=== PATIENT | male | born 1965 | race African-American/Black ===

== ENCOUNTER 2022-02-06 04:40 | Inpatient (IN) | payer SELFPAY ==
--- NOTE | 2022-02-06 11:02 | XRay Report ---
CHEST 2 VIEWS INDICATION / CLINICAL INFORMATION: stroke symptoms. COMPARISON: None available. FINDINGS: SUPPORT DEVICES: None. HEART / MEDIASTINUM: No significant abnormality. LUNGS / PLEURA: No significant pulmonary or pleural abnormality. No pneumothorax. ADDITIONAL FINDINGS: No significant additional findings. IMPRESSION: 1. No acute findings. Signer Name: Tim Sweeney MD Signed: 02/06/2022 10:57 AM Workstation Name: [id number]
[2022-02-06 11:28] LABS: Basophils # (Auto) 0.1 K/mm3 (0.0-0.1); Basophils % (Auto) 0.8 % (0.0-1.8); Eosinophils # (Auto) 0.1 K/mm3 (0.0-0.4); Eosinophils % (Auto) 0.8 % (0.0-4.3); Hematocrit 51.9 % (35.5-45.6); Hemoglobin 17.3 gm/dl (11.8-15.2); Lymphocytes # (Auto) 2.5 K/mm3 (1.2-5.4); Lymphocytes % (Auto) 27.3 % (13.4-35.0); Mean Corpuscular HGB Conc 33 % (32-34); Mean Corpuscular Volume 97 fl (84-94); Monocytes # (Auto) 0.6 K/mm3 (0.0-0.8); Monocytes % (Auto) 6.2 % (0.0-7.3); Platelet Count 204 K/mm3 (140-440); Red Blood Count 5.37 M/mm3 (3.65-5.03); Red Cell Distribution Width 12.4 % (13.2-15.2)
[2022-02-06 11:38] LABS: INR 0.78 (0.87-1.13); Partial Thromboplastin Time 24.4 Sec. (24.2-36.6)
[2022-02-06 11:51] LABS: Creatine Kinase MB 1.5 ng/mL (0.0-4.0)
[2022-02-06 11:52] LABS: Alanine Aminotransferase 26 units/L (7-56); Albumin 4.7 g/dL (3.9-5); BUN/Creatinine Ratio 21; Blood Urea Nitrogen 25 mg/dL (9-20); Calcium 10.1 mg/dL (8.4-10.2); Hemolysis Index 13
[2022-02-06] MEDS ORDERED: INSULIN REGULAR, HUMAN 100 UNITS/1 ML IV ONE (12:11)
[2022-02-06] MEDS ORDERED: LACTATED RINGERS 1,000 ML IV ONE (12:11)
--- NOTE | 2022-02-06 12:14 | Cat Scan Report ---
CT head/brain wo con INDICATION / CLINICAL INFORMATION: 56 years Male; Stroke symptoms. TECHNIQUE: Routine CT head without contrast. All CT scans at this location are performed using CT dos e reduction for ALARA by means of automated exposure control. COMPARISON: None. FINDINGS: BRAIN / INTRACRANIAL CONTENTS: No acute hemorrhage, mass effect, midline shift, hydrocephalus, or acu te, large territorial infarct. No signs of significant atrophy or chronic infarct. No significant whi te matter abnormality seen. CRANIOCERVICAL JUNCTION: No significant abnormality. ORBITS: No significant abnormality of visualized orbits. SINUSES / MASTOIDS: There is opacification of the left maxillary antrum. Partial opacification of the ethmoids and left frontal sinus noted. Mild to moderate mucosal thickening seen in the mastoids. ADDITIONAL FINDINGS: None. IMPRESSION: 1. No focal mass, hemorrhage, hydrocephalus, or acute, large territorial infarct. 2. Sinus disease, as described above. Signer Name: Reynaldo Phoenix MD, III Signed: 02/06/2022 12:10 PM Workstation Name: [id number]
--- NOTE | 2022-02-06 12:14 | Emergency Department Report ---
ED General Adult HPI - General Chief complaint: Anxiety Stated complaint: right sided weakness Time Seen by Provider: 02/06/22 09:37 Source: patient, family, EMS ( EMS documentation not available at time of chart dictation ), RN notes reviewed Mode of arrival: Ambulatory Limitations: Language Barrier - History of Present Illness Initial comments: The patient was evaluated in the emergency department for symptoms described in the history of present illness. He/she was evaluated in the context of the global COVID-19 pandemic, which necessitated consideration that the patient might be at risk for infection with the virus that causes COVID-19. Instit utional protocols and algorithms that pertain to the evaluation of patients at risk for COVID-19 are in a state of rapid change based on information released by regulatory bodies including the CDC and federal and state organizations. These policies and algorithms were followed during the patient's care in the emergency department. Please note that these policies, procedures and recommendations changed on a rapid basis. [place] paster supervisor: [id number] Family at the bedside, Mr. Danish Camarena; [phone] Using the aforementioned paster supervisor, patient gives consent to have the details of his care discussed with family at the bedside. The patient is a 56-year-old gentleman who is right-hand dominant, who presents to the department today with a primary complaint of right upper extremity weakne ss and clumsiness for about a week. Positive binocular blurry vision. No headache. No chest pain. No abdominal pain. No nausea vomiting or diarrhea. No urinary symptoms. No bladder or bowel retention incontinence or saddle anesthesia. Also endorses right leg weakness and numbness. On review of systems, reports no COVID symptoms. Reports that he has not used drugs for about 10 years. He does not know if he has chronic medical conditions. His primary care doctor recently treated him for a right upper extremity rash with steroids, gabapentin, and valacyclovir. He reports that the right upper extremity rash is improving. Family endorses unintentional weight loss which is painless. Patient also denies hematemesis and bright red blood per rectum -: days(s) Location: left, right, upper extremity, lower extremity Consistency: constant Improves with: none Worsens with: none - Related Data Allergies Allergy/AdvReac Type Severity Reaction Status Date / Time No Known Allergies Allergy Unverified 02/06/22 04:53 ED Review of Systems ROS: Stated complaint: ANXIETY ATTACK Other details as noted in HPI Constitutional: malaise, weakness. denies: fever Eyes: vision change. denies: eye discharge ENT: denies: epistaxis Cardiovascular: denies: chest pain Gastrointestinal: denies: abdominal pain Genitourinary: denies: dysuria Musculoskeletal: denies: back pain Skin: rash, lesions Neurological: weakness, paresthesias ED Past Medical Hx - Past Medical History Previous Medical History?: No - Surgical History Past Surgical History?: No - Social History Smoking Status: Never Smoker Substance Use Type: None ED Physical Exam - General Limitations: Language Barrier General appearance: alert, in no apparent distress - Head Head exam: Present: atraumatic, normocephalic - Eye Eye exam: Present: normal appearance, PERRL, EOMI. Absent: nystagmus - ENT ENT exam: Present: normal orophraynx, mucous membranes dry, normal external ear exam - Neck Neck exam: Present: normal inspection, full ROM. Absent: tenderness, meningismus - Respiratory Respiratory exam: Present: normal lung sounds bilaterally. Absent: respiratory distress, wheezes, rales, rhonchi, stridor, decreased breath sounds - Cardiovascular Cardiovascular Exam: Present: regular rate, normal rhythm, normal heart sounds. Absent: bradycardia, tachycardia, irregular rhythm, systolic murmur, diastolic murmur, rubs, gallop - GI/Abdominal GI/Abdominal exam: Present: soft. Absent: distended, tenderness, guarding, rebound, rigid, pulsatile mass - Rectal Rectal exam: Present: deferred - Extremities Exam Extremities exam: Present: full ROM, other (2+ pulses noted in the bilateral upper and lower extremities. There is no palpable cord. negative Homans sign. Muscular compartments are soft. The pelvis is stable.). Absent: normal inspection (Healing vesicular lesions noted on the right upper), pedal edema, calf tenderness - Back Exam Back exam: Present: normal inspection. Absent: tenderness, CVA tenderness (R), CVA tenderness (L), paraspinal tenderness, vertebral tenderness - Neurological Exam Neurological exam: Present: alert, oriented X3, motor sensory deficit (4 out of 5 strength right arm and right leg. Decreased sensation to light touch right arm and right leg. Mild right upper extremity pronator drift. Upper extremity [id number] abnormal), other (There is no facial droop. The tongue is midline. Sensation is intact to light touch bilateral V1, V2 distribution. Patient reports decreased sensation to light touch V2, V3 bilaterally. 5/5 strength left arm and left leg. Sensation is intact to light touch left arm and left leg) - Psychiatric Psychiatric exam: Present: flat affect - Skin Skin exam: Present: warm, dry, intact ED Course Vital Signs 02/06/22 02/06/22 02/06/22 04:53 11:16 11:25 Temperature 98.9 F Pulse Rate 82 60 Respiratory 18 15 Rate Blood Pressure 129/71 O2 Sat by Pulse 96 99 100 Oximetry - Reevaluation(s) Reevaluation #1: 02/06/22 13:23 Right upper extremity not consistent with acute zoster. Healing lesions are noted, patient and family endorse that lesions look much better than prior. - Pulse Oximetry Interpretation Digit-Finger Initial Pulse Oximetry Readin O2 Sat by Pulse Oximetry: 99 Actions Taken: none ED Medical Decision Making - Lab Data Result diagrams: 02/06/22 10:44 02/06/22 10:44 Vital Signs 02/06/22 02/06/22 02/06/22 04:53 11:16 11:25 Temperature 98.9 F Pulse Rate 82 60 Respiratory 18 15 Rate Blood Pressure 129/71 O2 Sat by Pulse 96 99 100 Oximetry Lab Results 02/06/22 02/06/22 02/06/22 Range/Units 10:44 10:44 10:44 WBC 9.1 (4.5-11.0) K/mm3 RBC 5.37 H (3.65-5.03) M/mm3 Hgb 17.3 H (11.8-15.2) gm/dl Hct 51.9 H (35.5-45.6) % MCV 97 H (84-94) fl MCH 32 (28-32) pg MCHC 33 (32-34) % RDW 12.4 L (13.2-15.2) % Plt Count 204 (140-440) K/mm3 Lymph % (Auto) 27.3 (13.4-35.0) % Rich % (Auto) 6.2 (0.0-7.3) % Eos % (Auto) 0.8 (0.0-4.3) % Baso % (Auto) 0.8 (0.0-1.8) % Lymph # (Auto) 2.5 (1.2-5.4) K/mm3 Rich # (Auto) 0.6 (0.0-0.8) K/mm3 Eos # (Auto) 0.1 (0.0-0.4) K/mm3 Baso # (Auto) 0.1 (0.0-0.1) K/mm3 Seg Neutrophils % 64.9 (40.0-70.0) % Seg Neutrophils # 5.9 (1.8-7.7) K/mm3 PT 11.7 L (12.2-14.9) Sec. INR 0.78 L (0.87-1.13) APTT 24.4 (24.2-36.6) Sec. Thrombin Time 16.0 (15.1-19.6) Sec. Sodium 133 L (137-145) mmol/L Potassium 4.9 (3.6-5.0) mmol/L Chloride 93.5 L (98-107) mmol/L Carbon Dioxide 29 (22-30) mmol/L Anion Gap 15 mmol/L BUN 25 H (9-20) mg/dL Creatinine 1.2 (0.8-1.3) mg/dL Estimated GFR > 60 ml/min BUN/Creatinine Ratio 21 % Glucose 609 H* (75-100) mg/dL Calcium 10.1 (8.4-10.2) mg/dL Total Bilirubin 0.60 (0.1-1.2) mg/dL AST 19 (5-40) units/L ALT 26 (7-56) units/L Alkaline Phosphatase 140 H (35-129) units/L Total Creatine Kinase 40 L (55-170) units/L CK-MB (CK-2) 1.5 (0.0-4.0) ng/mL CK-MB (CK-2) Rel Index 3.7 (0-4) Troponin T < 0.010 (0.00-0.029) ng/mL Total Protein 7.6 (6.3-8.2) g/dL Albumin 4.7 (3.9-5) g/dL Albumin/Globulin Ratio 1.6 % - EKG Data -: EKG Interpreted by [place] EKG shows normal: sinus rhythm Rate: normal - EKG Data When compared to previous EKG there are: previous EKG unavailable 02/06/22 13:20 The EKG is interpreted at 12: 15 Sinus rhythm, rate 61 bpm. Normal axis, normal P wave axis, poor R wave progression, and motion artifact. Intervals within normal limits. This is an abnormal EKG. This is not a STEMI. There is no prior EKG available for comparison - Radiology Data Radiology results: pending, report reviewed, image reviewed CHEST 2 VIEWS INDICATION / CLINICAL INFORMATION: stroke symptoms. COMPARISON: None available. FINDINGS: SUPPORT DEVICES: None. HEART / MEDIASTINUM: No significant abnormality. LUNGS / PLEURA: No significant pulmonary or pleural abnormality. No pneumothorax. ADDITIONAL FINDINGS: No significant additional findings. IMPRESSION: 1. No acute findings. Signer Name: Tim Sweeney MD Signed: 02/06/2022 9:57 AM Workstation Name: [id number] CT head/brain wo con INDICATION / CLINICAL INFORMATION: 56 years Male; Stroke symptoms. TECHNIQUE: Routine CT head without contrast. All CT scans at this location are performed using CT dose reduction for ALARA by means of automated exposure control. COMPARISON: None. FINDINGS: BRAIN / INTRACRANIAL CONTENTS: No acute hemorrhage, mass effect, midline shift, hydrocephalus, or acute, large territorial infarct. No signs of significant atrophy or chronic infarct. No significant white matter abnormality seen. CRANIOCERVICAL JUNCTION: No significant abnormality. ORBITS: No significant abnormality of visualized orbits. SINUSES / MASTOIDS: There is opacification of the left maxillary antrum. Partial opacification of the ethmoids and left frontal sinus noted. Mild to moderate mucosal thickening seen in the mastoids. ADDITIONAL FINDINGS: None. IMPRESSION: 1. No focal mass, hemorrhage, hydrocephalus, or acute, large marta torial infarct. 2. Sinus disease, as described above. Signer Name: Reynaldo Phoenix MD, III Signed: 02/06/2022 11:10 AM Workstation Name: [id number] - Medical Decision Making Differential diagnosis, including but not limited to: Subacute stroke, metabolic derangement, electrolyte derangement, thyroid derangement, peripheral neuropathy Assessment and plan: 56-year-old gentleman with a primary complaint of right upper extremity and right lower extremity weakness and numbness for about a week. Symptoms present for greater than 4.5 hours. He is therefore not a tPA candidate. Symptoms present for greater than 1 day. Therefore, emergent CT angiogram head and neck not indicated. Noncontrast CT scan of the brain, and x-ray of the chest are negative. EKG nonspecific without chest pain. Laboratory studies demonstrate hyperglycemia with hemoconcentration. Using paster supervisor, have recommended admission to the medical service for medical optimization, and to be evaluated for subacute stroke. Patient is agreeable to this plan of care, and has also provided consen t for the details of his care to be discussed with family members. IV fluids, insulin, and aspirin have been ordered. Case is endorsed to hospital physician, Dr. Callie Greene, who will assume care of the patient. Called up family member Mr. Camarena, and gave him an update. He articulated understanding. All questions answered. Critical Care Time: Yes Critical care time in (mins) excluding proc time.: 35 Critical care attestation.: If time is entered above; I have spent that time in minutes in the direct care of this critically ill patient, excluding procedure time. ED Disposition Clinical Impression: Hyperglycemia, Dehydration, Right sided weakness Disposition: ADMITTED INPATIENT Is pt being admited?: Yes Does the pt Need Aspirin: No Condition: Good
[2022-02-06] MEDS ORDERED: ASPIRIN 81 MG TAB CHEW PO ONE (12:16)
[2022-02-06] MEDS ORDERED: ONDANSETRON 4 MG/2 ML INJ IV PRN ×2 (12:17→16:42)
[2022-02-06] MEDS ORDERED: ACETAMINOPHEN 325 MG TAB PO PRN ×2 (12:17→16:42)
[2022-02-06 13:20] LABS: Chol/HDL Ratio 5.66 %
[2022-02-06] MEDS ORDERED: METOCLOPRAMIDE 10 MG/2 ML INJ IV PRN (16:42)
[2022-02-06] MEDS ORDERED: MORPHINE 2 MG/1 ML INJ IV PRN (16:42)
[2022-02-06] MEDS ORDERED: HYDROmorphone 0.5 MG/0.5 ML INJ IV PRN (16:42)
[2022-02-06] MEDS ORDERED: DEXTROSE 50% IN WATER (25GM) 50 ML SYRINGE IV PRN (16:51)
[2022-02-06] MEDS ORDERED: INSULIN REGULAR, HUMAN 100 UNITS in SODIUM CHLORIDE 0.9% 99 ML IV SCH (17:00)
[2022-02-06 17:44] LABS: BUN/Creatinine Ratio 22; Blood Urea Nitrogen 20 mg/dL (9-20); Calcium 8.5 mg/dL (8.4-10.2); Hemolysis Index 6
[2022-02-06 19:17] LABS: BUN/Creatinine Ratio 26; Blood Urea Nitrogen 23 mg/dL (9-20); Calcium 8.3 mg/dL (8.4-10.2); Hemolysis Index 71
[2022-02-06] MEDS: D5W/0.45% NACL/KCL 20 MEQ 20 MEQ/1,000 ML BAG IV SCH ×2 (19:29→22:09)
[2022-02-06 19:55] LABS: Amphetamine Screen,Urine PRESUMPTIVE NEGATIVE; Benzodiazepines Screen,Urine PRESUMPTIVE NEGATIVE; Cannabinoid Screen,Urine PRESUMPTIVE NEGATIVE; Cocaine Screen,Urine PRESUMPTIVE NEGATIVE; Methadone Screen,Urine PRESUMPTIVE NEGATIVE; Opiate Screen,Urine PRESUMPTIVE NEGATIVE
[2022-02-06 19:57] LABS: Mucus,Urine FEW /HPF; RBC,Urine < 1.0 /HPF (0.0-6.0); WBC,Urine < 1.0 /HPF (0.0-6.0)
[2022-02-06 20:14] LABS: Bilirubin,Urine Negative (Negative); Blood,Urine Negative (Negative); Color,Urine Straw (Yellow)
[2022-02-06 21:24] LABS: BUN/Creatinine Ratio 24; Blood Urea Nitrogen 22 mg/dL (9-20); Calcium 8.2 mg/dL (8.4-10.2); Hemolysis Index 22
[2022-02-06] MEDS ORDERED: SODIUM CHLORIDE 0.9% 1000 ML 1,000 ML ONE (21:32)
[2022-02-06] MEDS: HEPARIN 5,000 UNIT/1 ML VIAL SUB-Q SCH (21:33)
[2022-02-06] MEDS ORDERED: SODIUM CHLORIDE 0.9% 1000 ML 1,000 ML IV SCH (21:45)
[2022-02-07 00:15] LABS: Blood Urea Nitrogen 19 mg/dL (9-20); Calcium 7.7 mg/dL (8.4-10.2); Hemolysis Index 5
[2022-02-07 00:16] LABS: BUN/Creatinine Ratio 27
[2022-02-07] MEDS ORDERED: SODIUM CHLORIDE 0.9% 1000 ML 1,000 ML IV ONE ×2 (00:33→02:54)
[2022-02-07 01:54] LABS: Blood Urea Nitrogen 18 mg/dL (9-20); Calcium 7.4 mg/dL (8.4-10.2); Hemolysis Index 13
[2022-02-07 02:10] LABS: BUN/Creatinine Ratio 26
[2022-02-07 05:17] LABS: Alanine Aminotransferase 17 units/L (7-56); Albumin 2.4 g/dL (3.9-5); Blood Urea Nitrogen 16 mg/dL (9-20); Calcium 6.9 mg/dL (8.4-10.2); Hemolysis Index 17
[2022-02-07 05:23] LABS: BUN/Creatinine Ratio 27
[2022-02-07] MEDS: D5W/0.45% NACL/KCL 20 MEQ 20 MEQ/1,000 ML BAG IV SCH (05:33)
--- NOTE | 2022-02-07 06:45 | History and Physical Report ---
History of Present Illness Date of examination: 02/06/22 Date of admission: 02/06/22 16:42 Chief complaint: Altered sensorium and right-sided weakness 1 day History of present illness: [place] talent program manager: [id number] Family at the bedside, Mr. Danish Camarena; [phone] Using the aforementioned talent program manager, patient gives consent to have the details of his care discussed with family at the bedside. The patient is a 56-year-old gentleman who is right-hand dominant, who presents to the department today with a primary complaint of right upper extremity weakness and clumsiness for about a week. Positive binocular blurry vision. No headache. No chest pain. No abdominal pain. No nausea vomiting or diarrhea. No urinary symptoms. No bladder or bowel retention incontinence or saddle anesthesia. Also endorses right leg weakness and numbness. On review of systems, reports no COVID symptoms. Reports that he has not used drugs for about 10 years. He does not know if he has chronic medical conditions. His primary care doctor recently treated him for a right upper extremity rash with steroids, gabapentin, and valacyclovir. He reports that the right upper extremity rash is improving. Family endorses unintentional weight loss Patient also denies hematemesis and bright red blood per rectum -: days(s) ED course: Blood glucose levels were high in the mid 650s--- patient being admitted to ICU for IV insulin and DKA protocol - Past Medical History --Previous Medical History?: No - Surgical History --Past Surgical History?: No - Social History --Smoking Status: Never Smoker --Substance Use Type: None -Family history --Htn Review of Systems ROS: Stated complaint: ANXIETY ATTACK Other details as noted in HPI Constitutional: malaise, weakness. denies: fever Eyes: vision change. denies: eye discharge ENT: denies: epistaxis Cardiovascular: denies: chest pain Gastrointestinal: denies: abdominal pain Genitourinary: denies: dysuria Musculoskeletal: denies: back pain Skin: rash, lesions Neurological: weakness, paresthesias Medications and Allergies Allergies Allergy/AdvReac Type Severity Reaction Status Date / Time No Known Allergies Allergy Unverified 02/06/22 04:53 Home Medications Medication Instructions Recorded Confirmed Last Taken Type No Known Home Medications [No 02/06/22 02/06/22 Unknown History Reported Home Medications] Active Meds: Active Medications Acetaminophen (Acetaminophen 325 Mg Tab) 650 mg PO Q4H PRN PRN Reason: Pain MILD(1-3)/Fever >100.5/[place] Dextrose (Dextrose 50% In Water (25gm) 50 Ml Syringe) 0 ml IV Q30MIN PRN; Protocol PRN Reason: Hypoglycemia Heparin Sodium (Porcine) (Heparin 5,000 Unit/1 Ml Vial) 5,000 unit SUB-Q Q12HR [facility] Last Admin: 02/06/22 21:33 Dose: 5,000 unit Hydromorphone HCl (Hydromorphone 0.5 Mg/0.5 Ml Inj) 0.5 mg IV Q3H PRN PRN Reason: Pain , Severe (7-10) Insulin Human Regular 100 (units/ Sodium Chloride) 100 mls @ 1 mls/hr IV TITR [facility]; Protocol Last Titration: 02/07/22 06:40 Dose: 2.5 units/hr, 2.5 mls/hr Potassium Chloride/Dextrose/Sod Cl (D5w/0.45% Nacl/Kcl 20 Meq) 20 meq in 1,000 mls @ 125 mls/hr IV DIRECT MEGHNA Last Admin: 02/07/22 05:33 Dose: 125 mls/hr Sodium Chloride (Nacl 0.9% 1000 Ml) 1,000 mls @ 125 mls/hr IV DIRECT MEGHNA Last Admin: 02/06/22 21:50 Dose: 125 mls/hr Metoclopramide HCl (Metoclopramide 10 Mg/2 Ml Inj) 10 mg IV Q6H PRN PRN Reason: Nausea And Vomiting Morphine Sulfate (Morphine 2 Mg/1 Ml Inj) 2 mg IV Q4H PRN PRN Reason: Pain, Moderate (4-6) Ondansetron HCl (Ondansetron 4 Mg/2 Ml Inj) 4 mg IV Q8H PRN PRN Reason: Nausea And Vomiting Sodium Chloride (Sodium Chloride 0.9% 10 Ml Flush Syringe) 10 ml IV BID [facility] Last Admin: 02/06/22 21:35 Dose: 10 ml Sodium Chloride (Sodium Chloride 0.9% 10 Ml Flush Syringe) 10 ml IV PRN PRN PRN Reason: LINE FLUSH Exam - Constitutional Vitals: Temp Pulse Resp BP Pulse Ox 97.6 F 57 L 18 81/48 97 02/06/22 23:17 02/07/22 05:00 08/13/22 05:07 02/07/22 05:00 02/07/22 05:07 General appearance: Present: no acute distress, well-nourished - EENT Eyes: Present: PERRL ENT: hearing intact, clear oral mucosa - Neck Neck: Present: supple, normal ROM - Respiratory Respiratory effort: normal Respiratory: bilateral: CTA - Cardiovascular Heart rate: 78 Rhythm: regular Heart Sounds: Present: S1 & S2. Absent: rub, click - Extremities Extremities: pulses symmetrical, No edema Peripheral Pulses: within normal limits - Abdominal General gastrointestinal: Present: soft, non-tender, non-distended, normal bowel sounds Male genitourinary: Present: normal - Integumentary Integumentary: Present: clear, warm, dry - Musculoskeletal Musculoskeletal: gait normal, strength equal bilaterally - Psychiatric Psychiatric: appropriate mood/affect, intact judgment & insight, other (Slightly lethargic) - Neurologic Neurologic: CNII-XII intact, moves all extremities, other (Slightly lethargic) - Allied Health Allied health notes reviewed: nursing, case management HEART Score - HEART Score Troponin: Troponin T < 0.010 ng/mL (0.00-0.029) 02/06/22 10:44 Results - Labs CBC & Chem 7: 02/06/22 10:44 02/07/22 04:18 Labs: Laboratory Last Values WBC 9.1 K/mm3 (4.5-11.0) 02/06/22 10:44 RBC 5.37 M/mm3 (3.65-5.03) H 02/06/22 10:44 Hgb 17.3 gm/dl (11.8-15.2) H 02/06/22 10:44 Hct 51.9 % (35.5-45.6) H 02/06/22 10:44 MCV 97 fl (84-94) H 02/06/22 10:44 MCH 32 pg (28-32) 02/06/22 10:44 MCHC 33 % (32-34) 02/06/22 10:44 RDW 12.4 % (13.2-15.2) L 02/06/22 10:44 Plt Count 204 K/mm3 (140-440) 02/06/22 10:44 Lymph % (Auto) 27.3 % (13.4-35.0) 02/06/22 10:44 Sabine % (Auto) 6.2 % (0.0-7.3) 02/06/22 10:44 Eos % (Auto) 0.8 % (0.0-4.3) 02/06/22 10:44 Baso % (Auto) 0.8 % (0.0-1.8) 02/06/22 10:44 Lymph # (Auto) 2.5 K/mm3 (1.2-5.4) 02/06/22 10:44 Sabine # (Auto) 0.6 K/mm3 (0.0-0.8) 02/06/22 10:44 Eos # (Auto) 0.1 K/mm3 (0.0-0.4) 02/06/22 10:44 Baso # (Auto) 0.1 K/mm3 (0.0-0.1) 02/06/22 10:44 Seg Neutrophils % 64.9 % (40.0-70.0) 02/06/22 10:44 Seg Neutrophils # 5.9 K/mm3 (1.8-7.7) 02/06/22 10:44 PT 11.7 Sec. (12.2-14.9) L 02/06/22 10:44 INR 0.78 (0.87-1.13) L 02/06/22 10:44 APTT 24.4 Sec. (24.2-36.6) 02/06/22 10:44 Thrombin Time 16.0 Sec. (15.1-19.6) 02/06/22 10:44 VBG pH 7.392 (7.320-7.420) 02/06/22 12:23 Sodium 142 mmol/L (137-145) 02/07/22 04:18 Potassium 3.9 mmol/L (3.6-5.0) 02/07/22 04:18 Chloride 111.9 mmol/L (98-107) H 02/07/22 04:18 Carbon Dioxide 19 mmol/L (22-30) L 02/07/22 04:18 Anion Gap 15 mmol/L 02/07/22 04:18 BUN 16 mg/dL (9-20) 02/07/22 04:18 Creatinine 0.6 mg/dL (0.8-1.3) L 02/07/22 04:18 Estimated GFR > 60 ml/min 02/07/22 04:18 BUN/Creatinine Ratio 27 % 02/07/22 04:18 Glucose 139 mg/dL (75-100) H 02/07/22 04:18 POC Glucose 172 mg/dL (70-105) H 02/07/22 06:39 Hemoglobin A1c 19.6 % (4-6) H 02/06/22 12:23 Calcium 6.9 mg/dL (8.4-10.2) L 02/07/22 04:18 Phosphorus 3.90 mg/dL (2.5-4.5) 02/06/22 17:03 Magnesium 1.70 mg/dL (1.7-2.3) 02/06/22 17:03 Total Bilirubin 0.40 mg/dL (0.1-1.2) 02/07/22 04:18 AST 25 units/L (5-40) 02/07/22 04:18 ALT 17 units/L (7-56) 02/07/22 04:18 Alkaline Phosphatase 58 units/L (35-129) 02/07/22 04:18 Total Creatine Kinase 36 units/L (55-170) L 02/06/22 12:23 CK-MB (CK-2) 1.5 ng/mL (0.0-4.0) 02/06/22 10:44 CK-MB (CK-2) Rel Index 3.7 (0-4) 02/06/22 10:44 Troponin T < 0.010 ng/mL (0.00-0.029) 02/06/22 10:44 Total Protein 4.3 g/dL (6.3-8.2) L D 02/07/22 04:18 Albumin 2.4 g/dL (3.9-5) L 02/07/22 04:18 Albumin/Globulin Ratio 1.3 % 02/07/22 04:18 Triglycerides 363 mg/dL (2-149) H 02/06/22 12:23 Cholesterol 283 mg/dL (50-199) H 02/06/22 12:23 LDL Cholesterol Direct 187 mg/dL (50-130) H 02/06/22 12:23 HDL Cholesterol 50 mg/dL (40-59) 02/06/22 12:23 Cholesterol/HDL Ratio 5.66 % 02/06/22 12:23 TSH 3.140 mlU/mL (0.270-4.200) 02/06/22 12: Free T4 1.44 ng/dL (0.76-1.46) 02/06/22 12:23 Urine Color Straw (Yellow) 02/06/22 Unknown Urine Turbidity Clear (Clear) 02/06/22 Unknown Urine pH 6.0 (5.0-7.0) 02/06/22 Unknown Ur Specific [place] 1.030 (1.003-1.030) 02/06/22 Unknown Urine Protein 30 mg/dl mg/dL (Negative) 02/06/22 Unknown Urine Glucose (UA) 2+ mg/dL (Negative) 02/06/22 Unknown Urine Ketones Negative mg/dL (Negative) 02/06/22 Unknown Urine Blood Negative (Negative) 02/06/22 Unknown Urine Nitrite Negative (Negative) 02/06/22 Unknown Ur Reducing Substances Not Reportable 02/06/22 Unknown Urine Bilirubin Negative (Negative) 02/06/22 Unknown Urine Ictotest Not Reportable 02/06/22 Unknown Urine Urobilinogen 0.0 mg/dL (<2.0) 02/06/22 Unknown Ur Leukocyte Esterase Negative (Negative) 02/06/22 Unknown Urine WBC (Auto) < 1.0 /HPF (0.0-6.0) 02/06/22 Unknown Urine RBC (Auto) < 1.0 /HPF (0.0-6.0) 02/06/22 Unknown U Epithel Cells (Auto) 1.0 /HPF (0-13.0) 02/06/22 Unknown Urine Mucus Few /HPF 02/06/22 Unknown Urine Opiates Screen Presumptive negative 02/06/22 Unknown Urine Methadone Screen Presumptive negative 02/06/22 Unknown Ur Barbiturates Screen Presumptive negative 02/06/22 Unknown Ur Phencyclidine Scrn Presumptive negative 02/06/22 Unknown Ur Amphetamines Screen Presumptive negative 02/06/22 Unknown U Benzodiazepines Scrn Presumptive negative 02/06/22 Unknown Urine Cocaine Screen Presumptive negative 02/06/22 Unknown U Marijuana (THC) Screen Presumptive negative 02/06/22 Unknown Drugs of Abuse Note Disclamer 02/06/22 Unknown Short CBC 02/06/22 Range/Units 10:44 WBC 9.1 (4.5-11.0) K/mm3 Hgb 17.3 H (11.8-15.2) gm/dl Hct 51.9 H (35.5-45.6) % Plt Count 204 (140-440) K/mm3 BMP 02/06/22 02/06/22 02/06/22 10:44 17:03 18:39 Sodium 133 L 138 135 L Potassium 4.9 3.9 D 4.3 Chloride 93.5 L 97.8 L 96.3 L Carbon Dioxide 29 27 26 BUN 25 H 20 23 H Creatinine 1.2 0.9 0.9 Glucose 609 H* 442 H 606 H* Calcium 10.1 8.5 D 8.3 L 02/06/22 02/06/22 02/07/22 20:35 23:33 01:11 Sodium 138 141 142 Potassium 4.0 3.8 4.0 Chloride 102.1 107.5 H 109.6 H Carbon Dioxide 21 L 24 22 BUN 22 H 19 18 Creatinine 0.9 0.7 L 0.7 L Glucose 407 H 196 H 166 H Calcium 8.2 L 7.7 L 7.4 L 02/07/22 04:18 Sodium 142 Potassium 3.9 Chloride 111.9 H Carbon Dioxide 19 L BUN 16 Creatinine 0.6 L Glucose 139 H Calcium 6.9 L Cardiac Enzymes 02/06/22 02/06/22 Range/Units 10:44 12:23 Total Creatine Kinase 40 L 36 L (55-170) units/L CK-MB (CK-2) 1.5 (0.0-4.0) ng/mL Troponin T < 0.010 (0.00-0.029) ng/mL Liver Function 02/06/22 02/07/22 Range/Units 10:44 04:18 Total Bilirubin 0.60 0.40 (0.1-1.2) mg/dL AST 19 25 (5-40) units/L ALT 26 17 (7-56) units/L Alkaline Phosphatase 140 H 58 (35-129) units/L Albumin 4.7 2.4 L (3.9-5) g/dL Urine 02/06/22 Range/Units Unknown Urine Color Straw (Yellow) Urine pH 6.0 (5.0-7.0) Ur Specific [place] 1.030 (1.003-1.030) Urine Protein 30 mg/dl (Negative) mg/dL Urine Glucose (UA) 2+ (Negative) mg/dL - Imaging and Cardiology Imaging and Cardiology: Head CT no acute changes Chest x-ray No acute findings Munoz/IV: Voiding Method Urinal Assessment and Plan Advance Directives: Yes (Full code) VTE prophylaxis?: Chemical Plan of care discussed with patient/family: Yes - Patient Problems (1) Hyperosmolar non-ketotic state in patient with type 2 diabetes mellitus Current Visit: Yes Status: Acute Plan to address problem: DKA protocol IV insulin IV fluids New onset diabetes Diabetes education The patient is more alert and oriented Defer to primary team regarding insulin dosage and choice of insulin (2) Dehydration Current Visit: Yes Status: Acute Plan to address problem: IV fluids for now (3) Right sided weakness Current Visit: Yes Status: Acute Plan to address problem: Not in favor of CVA Will reassess once the metabolic derangements are corrected MRI brain if necessary (4) Uncontrolled diabetes mellitus Current Visit: Yes Status: Acute Qualifiers: Diabetes mellitus type: type 2 Plan to address problem: Never been to a physician in the last few years New onset diabetes Diabetes education Insulin and metformin at discharge (5) Hyponatremia Current Visit: Yes Status: Acute Plan to address problem: Mild --should correct with IV fluids and correction of blood glucose (6) Hyperlipidemia Current Visit: Yes Status: Acute Qualifiers: Hyperlipidemia type: mixed hyperlipidemia Qualified Code(s): E78.2 - Mixed hyperlipidemia Plan to address problem: Crestor initiated (7) Hypertriglyceridemia Current Visit: Yes Status: Acute Plan to address problem: Fenofibrate initiated (8) Herpes zoster Current Visit: Yes Status: Acute Plan to address problem: Recent on the right arm Treated with Valtrex and gabapentin (9) DVT prophylaxis Current Visit: Yes Status: Acute Plan to address problem: On heparin and GI prophylaxis (10) Advance care planning Current Visit: Yes Status: Acute Plan to address problem: Disease education conducted, care plan discussed, diagnosis discussed and prognosis discussed. Patient and family acknowledged understanding with care plan +30 minutes.
[2022-02-07] MEDS ORDERED: LACTATED RINGERS 1,000 ML IV ONE (08:01)
[2022-02-07] MEDS ORDERED: DEXTROSE 50% IN WATER (25GM) 50 ML SYRINGE IV PRN (08:05)
[2022-02-07 08:29] LABS: Hemoglobin 15.3 gm/dl (11.8-15.2); Mean Corpuscular HGB Conc 33 % (32-34); Mean Corpuscular Volume 97 fl (84-94); Platelet Count 195 K/mm3 (140-440); Red Blood Count 4.86 M/mm3 (3.65-5.03); Red Cell Distribution Width 12.1 % (13.2-15.2)
[2022-02-07] MEDS ORDERED: INSULIN GLARGINE 100 UNITS/ML SUB-Q SCH (09:00)
--- NOTE | 2022-02-07 09:41 | Cat Scan Report ---
CTA HEAD AND NECK WITH CONTRAST HISTORY: Stroke symptoms COMPARISON: Head CT on 02/06/2022 TECHNIQUE: All CT scans at this location are performed using CT dose reduction for ALARA by means of automated exposure control.. 3-D/MIP reformats postprocessed. Percentage stenosis is determined by d irect quantitative measurements of diseased internal carotid artery diameter compared with normal dis monserrat internal carotid artery reference segments or by criteria similar to NASCET where applicable. CONTRAST: 100 ml of Omnipaque 350 FINDINGS: CTA HEAD: Intracranial vertebral arteries: Minimal calcified plaque in the left intracranial vertebral artery w ithout significant stenosis. Basilar artery: No significant abnormality. Posterior cerebral arteries: No significant abnormality. Intracranial internal carotid arteries: No significant abnormality. Anterior cerebral arteries: No significant abnormality. Middle cerebral arteries: No significant abnormality. Dural venous sinuses:Not optimally opacified. No significant abnormality. CTA NECK: Aortic arch: No acute findings. Aberrant origin of the right subclavian artery. Cervical vertebral arteries: No significant abnormality. Common carotid arteries: No significant abnormality. Cervical internal carotid arteries: Minimal atherosclerotic plaque in both carotid bulbs without sign ificant stenosis. Additional findings: None. IMPRESSION: 1. No significant stenosis or large vessel occlusion in the neck or intracranial arteries. Signer Name: Ugo Moser MD Signed: 02/07/2022 9:37 AM Workstation Name: [email or web address]
[2022-02-07] MEDS: FENOFIBRATE 145 MG TAB PO SCH (09:43)
[2022-02-07] MEDS: HEPARIN 5,000 UNIT/1 ML VIAL SUB-Q SCH ×2 (09:43→21:55)
[2022-02-07 09:53] LABS: Total Cells Counted 100
[2022-02-07 09:54] LABS: Platelet Estimate Consistent w Auto; RBC Morphology Normal
[2022-02-07 13:14] LABS: Blood Urea Nitrogen 13 mg/dL (9-20); Calcium 7.9 mg/dL (8.4-10.2); Hemolysis Index 37
[2022-02-07 13:18] LABS: BUN/Creatinine Ratio 19
--- NOTE | 2022-02-07 13:33 | Progress Note ---
Assessment and Plan Assessment and plan: This is a 60-year-old male with recent hospital stay infection admitted with HHNK and r/o CVA Neuro: r/o CVA -Neurology consulted, appreciate recommendations -CTH shows no focal mass, hemorrhage, hydrocephalus or acute or large territorial infarct -MRI brain -CTA head/neck shows no large vessel occlusion -Reorientation as needed -Maintain sleep-wake cycle -As needed analgesia -PT/OT consulted, appreciate recommendations -Lipid panel noted -Lipitor and fenofibrate -Passes beside swallow eval -Echo pending Cardiac: HLD, hypertriglyceridemia -Lipitor, fenofibrate -Blood pressure monitoring per protocol -Echocardiogram pending Respiratory: NAD -Pulmonary hygiene -SPO2 monitor per protocol -Supplemental oxygen as needed GI: Moderate protein calorie malnutrition -Dietary supplements -PPI -CC diet : NAD -Monitor intake and output -Renally dose medications -Avoid nephrotoxic medications -Trend BMP ID: NAD -Monitor WBC and temperature curve Endo: s/p HHNK, newly diagnosed IDDM -Presented with a blood glucose of 609, AG 29 -S/p insulin drip -Transition to SSI with long-acting insulin -Avoid hypoglycemia -Accu-Cheks q ACH S -Hemoglobin A1c 19.6 Heme: Hemoconcentraion? -Trend CBC -Transfuse hemoglobin less than 7 -SCDs to BLE while in bed The high probability of a clinically significant, sudden or life threatening deterioration of the [endo] system(s) required my full and direct attention, intervention and personal management. The aggregate critical care time was [60] minutes. This time is in addition to time spent performing reported procedures but includes the following: [x] Data Review and interpretation [x] Patient assessment and monitoring of vital signs [x] Documentation [x] Medication orders and management Disposition Plan: transfer to floor Total Time Spent with Patient (Minutes): 60 History Interval history: This is a 56-year-old male with recent herpes zoster infection who presents the emergency department with right-sided weakness, clumsiness, blurry vision for about a week with unintentional weight loss per family on 02/06. In the emergency department lab work was consistent with HHNK and the patient was admitted to the hospitalist service with consult to CCM and DKA protocol patient was also rule out CVA with consults to neurology and PT/OT. Hospital course to date: 02/07: Patient states that he has been feeling much better, denies any right sided weakness or blurred vision or numbness. NIHSS 0. Patient will have a MRI brain and had a CTA head/neck which showed no large vessel occlusion. Hemoglobin A1c is 16.9. Anion gap is closed and will be transitioned to SSI/long-acting insulin. Patient will be transferred to the floor. Hospitalist Physical - Constitutional Vitals: Temp Pulse Resp BP Pulse Ox 97.6 F 57 L 18 81/48 95 02/06/22 23:17 02/07/22 05:00 02/07/22 05:07 02/07/22 05:00 02/07/22 08:23 General appearance: Present: no acute distress, well-nourished - EENT Eyes: Present: PERRL, EOM intact ENT: hearing intact, clear oral mucosa, dentition normal - Neck Neck: Present: normal ROM - Respiratory Respiratory effort: normal Respiratory: bilateral: CTA - Cardiovascular Rhythm: regular Heart Sounds: Present: S1 & S2. Absent: systolic murmur, diastolic murmur - Extremities Extremities: no ischemia, pulses intact, pulses symmetrical, No edema, normal temperature, normal color, Full ROM Peripheral Pulses: within normal limits - Abdominal General gastrointestinal: soft, non-tender, non-distended, normal bowel sounds - Integumentary Integumentary: Present: warm, dry - Psychiatric Psychiatric: cooperative - Neurologic Neurologic: CNII-XII intact, no focal deficits, moves all extremities, other (5/5 strength to BLE and BUE, NIHSS 0) - Allied Health Allied health notes reviewed: nursing HEART Score - HEART Score Troponin: Troponin T < 0.010 ng/mL (0.00-0.029) 02/06/22 10:44 Results - Labs CBC & Chem 7: 02/07/22 04:18 02/07/22 12:38 Labs: Laboratory Last Values WBC 9.2 K/mm3 (4.5-11.0) 02/07/22 04:18 RBC 4.86 M/mm3 (3.65-5.03) 02/07/22 04:18 Hgb 15.3 gm/dl (11.8-15.2) H 02/07/22 04:18 Hct 47.0 % (35.5-45.6) H 02/07/22 04:18 MCV 97 fl (84-94) H 02/07/22 04:18 MCH 32 pg (28-32) 02/07/22 04:18 MCHC 33 % (32-34) 02/07/22 04:18 RDW 12.1 % (13.2-15.2) L 02/07/22 04:18 Plt Count 195 K/mm3 (140-440) 02/07/22 04:18 Lymph % (Auto) 27.3 % (13.4-35.0) 02/06/22 10:44 Desha % (Auto) 6.2 % (0.0-7.3) 02/06/22 10:44 Eos % (Auto) 0.8 % (0.0-4.3) 02/06/22 10:44 Baso % (Auto) 0.8 % (0.0-1.8) 02/06/22 10:44 Lymph # (Auto) 2.5 K/mm3 (1.2-5.4) 02/06/22 10:44 Desha # (Auto) 0.6 K/mm3 (0.0-0.8) 02/06/22 10:44 Eos # (Auto) 0.1 K/mm3 (0.0-0.4) 02/06/22 10:44 Baso # (Auto) 0.1 K/mm3 (0.0-0.1) 02/06/22 10:44 Add Manual Diff Complete 02/07/22 04:18 Total Counted 100 02/07/22 04:18 Seg Neutrophils % 64.9 % (40.0-70.0) 02/06/22 10:44 Seg Neuts % (Manual) 62.0 % (40.0-70.0) 02/07/22 04:18 Band Neutrophils % 0 % 02/07/22 04:18 Lymphocytes % (Manual) 25.0 % (13.4-35.0) 02/07/22 04:18 Reactive Lymphs % (Man) 0 % 02/07/22 04:18 Monocytes % (Manual) 10.0 % (0.0-7.3) H 02/07/22 04:18 Eosinophils % (Manual) 1.0 % (0.0-4.3) 02/07/22 04:18 Basophils % (Manual) 2.0 % (0.0-1.8) H 02/07/22 04:18 Metamyelocytes % 0 % 02/07/22 04:18 Myelocytes % 0 % 02/07/22 04:18 Promyelocytes % 0 % 02/07/22 04:18 Blast Cells % 0 % 02/07/22 04:18 Nucleated RBC % Not Reportable 02/07/22 04:18 Seg Neutrophils # 5.9 K/mm3 (1.8-7.7) 02/06/22 10:44 Seg Neutrophils # Man 5.7 K/mm3 (1.8-7.7) 02/07/22 04:18 Band Neutrophils # 0.0 K/mm3 02/07/22 04:18 Lymphocytes # (Manual) 2.3 K/mm3 (1.2-5.4) 02/07/22 04:18 Abs React Lymphs (Man) 0.0 K/mm3 02/07/22 04:18 Monocytes # (Manual) 0.9 K/mm3 (0.0-0.8) H 02/07/22 04:18 Eosinophils # (Manual) 0.1 K/mm3 (0.0-0.4) 02/07/22 04:18 Basophils # (Manual) 0.2 K/mm3 (0.0-0.1) H 02/07/22 04:18 Metamyelocytes # 0.0 K/mm3 02/07/22 04:18 Myelocytes # 0.0 K/mm3 02/07/22 04:18 Promyelocytes # 0.0 K/mm3 02/07/22 04:18 Blast Cells # 0.0 K/mm3 02/07/22 04:18 WBC Morphology Not Reportable 02/07/22 04:18 Hypersegmented Neuts Not Reportable 02/07/22 04:18 Hyposegmented Neuts Not Reportable 02/07/22 04:18 Hypogranular Neuts Not Reportable 02/07/22 04:18 Smudge Cells Not Reportable 02/07/22 04:18 Toxic Granulation Not Reportable 02/07/22 04:18 Toxic Vacuolation Not Reportable 02/07/22 04:18 Dohle Bodies Not Reportable 02/07/22 04:18 Pelger-Huet Anomaly Not Reportable 02/07/22 04:18 Melani Rods Not Reportable 02/07/22 04:18 Platelet Estimate Consistent w auto 02/07/22 04:18 Clumped Platelets Not Reportable 02/07/22 04:18 Plt Clumps, EDTA Not Reportable 02/07/22 04:18 Large Platelets Not Reportable 02/07/22 04:18 Giant Platelets Not Reportable 02/07/22 04:18 Platelet Satelliting Not Reportable 02/07/22 04:18 Plt Morphology Comment Not Reportable 02/07/22 04:18 RBC Morphology Normal 02/07/22 04:18 Dimorphic RBCs Not Reportable 02/07/22 04:18 Polychromasia Not Reportable 02/07/22 04:18 Hypochromasia Not Reportable 02/07/22 04:18 Poikilocytosis Not Reportable 02/07/22 04:18 Anisocytosis Not Reportable 02/07/22 04:18 Microcytosis Not Reportable 02/07/22 04:18 Macrocytosis Not Reportable 02/07/22 04:18 Spherocytes Not Reportable 02/07/22 04:18 Pappenheimer Bodies Not Reportable 02/07/22 04:18 Sickle Cells Not Reportable 02/07/22 04:18 Target Cells Not Reportable 02/07/22 04:18 Tear Drop Cells Not Reportable 02/07/22 04:18 Ovalocytes Not Reportable 02/07/22 04:18 Helmet Cells Not Reportable 02/07/22 04:18 [place] Bodies Not Reportable 02/07/22 04:18 [place] Rings Not Reportable 02/07/22 04:18 Araceli Cells Not Reportable 02/07/22 04:18 Bite Cells Not Reportable 02/07/22 04:18 Crenated Cell Not Reportable 02/07/22 04:18 Elliptocytes Not Reportable 02/07/22 04:18 Acanthocytes (Spur) Not Reportable 02/07/22 04:18 Rouleaux Not Reportable 02/07/22 04:18 Hemoglobin C Crystals Not Reportable 02/07/22 04:18 Schistocytes Not Reportable 02/07/22 04:18 Malaria parasites Not Reportable 02/07/22 04:18 Shawn Bodies Not Reportable 02/07/22 04:18 Hem Pathologist Commnt No 02/07/22 04:18 PT 11.7 Sec. (12.2-14.9) L 02/06/22 10:44 INR 0.78 (0.87-1.13) L 02/06/22 10:44 APTT 24.4 Sec. (24.2-36.6) 02/06/22 10:44 Thrombin Time 16.0 Sec. (15.1-19.6) 02/06/22 10:44 VBG pH 7.392 (7.320-7.420) 02/06/22 12:23 Sodium 134 mmol/L (137-145) L D 02/07/22 12:38 Potassium 4.7 mmol/L (3.6-5.0) D 02/07/22 12:38 Chloride 102.9 mmol/L (98-107) 02/07/22 12:38 Carbon Dioxide 20 mmol/L (22-30) L 02/07/22 12:38 Anion Gap 16 mmol/L 02/07/22 12:38 BUN 13 mg/dL (9-20) 02/07/22 12:38 Creatinine 0.7 mg/dL (0.8-1.3) L 02/07/22 12:38 Estimated GFR > 60 ml/min 02/07/22 12:38 BUN/Creatinine Ratio 19 % 02/07/22 12:38 Glucose 308 mg/dL (75-100) H 02/07/22 12:38 POC Glucose 266 mg/dL (70-105) H 02/07/22 08:45 Hemoglobin A1c 19.6 % (4-6) H 02/06/22 12:23 Calcium 7.9 mg/dL (8.4-10.2) L 02/07/22 12:38 Phosphorus 3.90 mg/dL (2.5-4.5) 02/06/22 17:03 Magnesium 1.70 mg/dL (1.7-2.3) 02/06/22 17:03 Total Bilirubin 0.40 mg/dL (0.1-1.2) 02/07/22 04:18 AST 25 units/L (5-40) 02/07/22 04:18 ALT 17 units/L (7-56) 02/07/22 04:18 Alkaline Phosphatase 58 units/L (35-129) 02/07/22 04:18 Total Creatine Kinase 36 units/L (55-170) L 02/06/22 12:23 CK-MB (CK-2) 1.5 ng/mL (0.0-4.0) 02/06/22 10:44 CK-MB (CK-2) Rel Index 3.7 (0-4) 02/06/22 10:44 Troponin T < 0.010 ng/mL (0.00-0.029) 02/06/22 10:44 Total Protein 4.3 g/dL (6.3-8.2) L D 02/07/22 04:18 Albumin 2.4 g/dL (3.9-5) L 02/07/22 04:18 Albumin/Globulin Ratio 1.3 % 02/07/22 04:18 Triglycerides 363 mg/dL (2-149) H 02/06/22 12:23 Cholesterol 283 mg/dL (50-199) H 02/06/22 12:23 LDL Cholesterol Direct 187 mg/dL (50-130) H 02/06/22 12:23 HDL Cholesterol 50 mg/dL (40-59) 02/06/22 12:23 Cholesterol/HDL Ratio 5.66 % 02/06/22 12:23 TSH 3.140 mlU/mL (0.270-4.200) 02/06/22 12:23 Free T4 1.44 ng/dL (0.76-1.46) 02/06/22 12:23 Urine Color Straw (Yellow) 02/06/22 Unknown Urine Turbidity Clear (Clear) 02/06/22 Unknown Urine pH 6.0 (5.0-7.0) 02/06/22 Unknown Ur Specific [place] 1.030 (1.003-1.030) 02/06/22 Unknown Urine Protein 30 mg/dl mg/dL (Negative) 02/06/22 Unknown Urine Glucose (UA) 2+ mg/dL (Negative) 02/06/22 Unknown Urine Ketones Negative mg/dL (Negative) 02/06/22 Unknown Urine Blood Negative (Negative) 02/06/22 Unknown Urine Nitrite Negative (Negative) 02/06/22 Unknown Ur Reducing Substances Not Reportable 02/06/22 Unknown Urine Bilirubin Negative (Negative) 02/06/22 Unknown Urine Ictotest Not Reportable 02/06/22 Unknown Urine Urobilinogen 0.0 mg/dL (<2.0) 02/06/22 Unknown Ur Leukocyte Esterase Negative (Negative) 02/06/22 Unknown Urine WBC (Auto) < 1.0 /HPF (0.0-6.0) 02/06/22 Unknown Urine RBC (Auto) < 1.0 /HPF (0.0-6.0) 02/06/22 Unknown U Epithel Cells (Auto) 1.0 /HPF (0-13.0) 02/06/22 Unknown Urine Mucus Few /HPF 02/06/22 Unknown Urine Opiates Screen Presumptive negative 02/06/22 Unknown Urine Methadone Screen Presumptive negative 02/06/22 Unknown Ur Barbiturates Screen Presumptive negative 02/06/22 Unknown Ur Phencyclidine Scrn Presumptive negative 02/06/22 Unknown Ur Amphetamines Screen Presumptive negative 02/06/22 Unknown U Benzodiazepines Scrn Presumptive negative 02/06/22 Unknown Urine Cocaine Screen Presumptive negative 02/06/22 Unknown U Marijuana (THC) Screen Presumptive negative 02/06/22 Unknown Drugs of Abuse Note Disclamer 02/06/22 Unknown Munoz/IV: Voiding Method Urinal Active Medications - Current Medications Current Medications: Generic Name Dose Route Start Last Admin Trade Name Freq PRN Reason Stop Dose Admin Acetaminophen 650 mg 02/06/22 12:17 Acetaminophen 325 Mg Tab PO Q4H PRN Pain MILD(1-3)/Fever >100.5/[place]O Atorvastatin Calcium 40 mg 02/07/22 22:00 Atorvastatin 40 Mg Tab PO QHS MEGHNA Dextrose 50 ml 02/07/22 08:05 Dextrose 50% In Water (25gm) 50 Ml Syringe IV Q30MIN PRN Hypoglycemia Protocol Fenofibrate 145 mg 02/07/22 10:00 02/07/22 09:43 Fenofibrate 145 Mg Tab PO 145 mg QDAY MEGHNA Administration Heparin Sodium (Porcine) 5,000 unit 02/06/22 22:00 02/07/22 09:43 Heparin 5,000 Unit/1 Ml Vial SUB-Q 5,000 unit Q12HR MEGHNA Administration Hydromorphone HCl 0.5 mg 02/06/22 16:42 Hydromorphone 0.5 Mg/0.5 Ml Inj IV Q3H PRN Pain , Severe (7-10) Sodium Chloride 1,000 mls @ 125 mls/hr 02/06/22 21:45 02/06/22 21:50 Nacl 0.9% 1000 Ml IV 125 mls/hr DIRECT MEGHNA Administration Insulin Glargine 14 units 02/07/22 09:00 02/07/22 08:45 Insulin Glargine 100 Units/Ml SUB-Q 14 units QAMDIAB MEGHNA Administration Insulin Human Lispro 0 unit 02/07/22 11:30 Insulin Lispro 100 Unit/Ml SUB-Q ACHS [facility] Protocol Metoclopramide HCl 10 mg 02/06/22 16:42 Metoclopramide 10 Mg/2 Ml Inj IV Q6H PRN Nausea And Vomiting Morphine Sulfate 2 mg 02/06/22 16:42 Morphine 2 Mg/1 Ml Inj IV Q4H PRN Pain, Moderate (4-6) Ondansetron HCl 4 mg 02/06/22 16:42 Ondansetron 4 Mg/2 Ml Inj IV Q8H PRN Nausea And Vomiting Sodium Chloride 10 ml 02/06/22 22:00 02/07/22 09:43 Sodium Chloride 0.9% 10 Ml Flush Syringe IV 10 ml BID MEGHNA Administration Sodium Chloride 10 ml 02/06/22 16:55 Sodium Chloride 0.9% 10 Ml Flush Syringe IV PRN PRN LINE FLUSH
[2022-02-07] MEDS: INSULIN LISPRO 100 UNIT/ML SUB-Q SCH ×2 (14:00→21:55)
[2022-02-08] MEDS ORDERED: INSULIN GLARGINE 100 UNITS/ML SUB-Q SCH (08:00)
[2022-02-08] MEDS: INSULIN LISPRO 100 UNIT/ML SUB-Q SCH ×4 (08:36→21:34)
--- NOTE | 2022-02-08 08:55 | Progress Note ---
Assessment and Plan Assessment and plan: History Interval history: This is a 56-year-old male with recent herpes zoster infection who presents the emergency department with right-sided weakness, clumsiness, blurry vision for about a week with unintentional weight loss per family on 02/06. In the emergency department lab work was consistent with HHNK and the patient was admitted to the hospitalist service with consult to CCM and DKA protocol patient was also rule out CVA with consults to neurology and PT/OT. Hospital course to date: 02/07: Patient states that he has been feeling much better, denies any right sided weakness or blurred vision or numbness. NIHSS 0. Patient will have a MRI brain and had a CTA head/neck which showed no large vessel occlusion. Hemoglobin A1c is 16.9. Anion gap is closed and will be transitioned to SSI/long-acting insulin. Patient will be transferred to the floor. 02/08: Pending MRI and PT eval. Neither can be completed on the weekend so will follow up for completion tomorrow. Anticipate d/c in next 24hrs. Good glycemic control on current regimen. Assessment and plan: This is a 60-year-old male with recent hospital stay infection admitted with HHNK and r/o CVA Neuro: possible CVA -Neurology consulted, appreciate recommendations -CTH shows no focal mass, hemorrhage, hydrocephalus or acute or large territorial infarct -MRI brain pending -CTA head/neck shows no large vessel occlusion -Reorientation as needed -Maintain sleep-wake cycle -As needed analgesia -PT/OT consulted, appreciate recommendations -Lipid panel noted -Lipitor and fenofibrate -Passes beside swallow eval -Echo pending Cardiac: HLD, hypertriglyceridemia -Lipitor, fenofibrate -Blood pressure monitoring per protocol -Echocardiogram pending Respiratory: NAD -Pulmonary hygiene -SPO2 monitor per protocol -Supplemental oxygen as needed GI: Moderate protein calorie malnutrition -Dietary supplements -PPI -CC diet : NAD -Monitor intake and output -Renally dose medications -Avoid nephrotoxic medications -Trend BMP ID: NAD -Monitor WBC and temperature curve Endo: s/p HHNK, newly diagnosed IDDM -Presented with a blood glucose of 609, AG 29 -S/p insulin drip -Transition to SSI with long-acting insulin -Avoid hypoglycemia -Accu-Cheks q ACH S -Hemoglobin A1c 19.6 Heme: Hemoconcentraion? -Trend CBC -Transfuse hemoglobin less than 7 -SCDs to BLE while in bed #Advance care planning Disease education conducted, care plan discussed, diagnoses discussed, prognosis discussed, patient is full code, patient acknowledges understanding and agree with care plan, +30 minutes. History Interval history: No complaints this AM. Patient sister at bedside, who was updated. Hospitalist Physical - Physical exam Narrative exam: Physical Exam: VITAL SIGNS: Reviewed. GENERAL: The patient appears normally developed, Vital signs as documented. HEAD: No signs of head trauma. EYES: Pupils are equal. Extraocular motions intact. EARS: Hearing grossly intact. MOUTH: Oropharynx is normal. NECK: No adenopathy, no JVD. CHEST: Chest with clear breath sounds bilaterally. No wheezes, rales, or rhonchi. CARDIAC: Regular rate and rhythm. S1 and S2, without murmurs, gallops, or rubs. VASCULAR: No Edema. Peripheral pulses normal and equal in all extremities. ABDOMEN: Soft, non tender and non distended. No rebound or guarding, and no masses palpated. Bowel Sounds normal. MUSCULOSKELETAL: Good range of motion of all major joints. Extremities without clubbing, cyanosis or edema. NEUROLOGIC EXAM: Alert and oriented x 4. no focal sensory or strength deficits. PSYCHIATRIC: Mood normal. SKIN: detail exam as documented in skin assessment - Constitutional Vitals: Temp Pulse Resp BP Pulse Ox 98.2 F 60 18 89/48 98 02/08/22 07:34 02/08/22 07:34 02/08/22 07:34 02/08/22 07:34 02/08/22 07:34 General appearance: Present: no acute distress, well-nourished HEART Score - HEART Score Troponin: Troponin T < 0.010 ng/mL (0.00-0.029) 02/06/22 10:44 Results - Labs CBC & Chem 7: 02/08/22 04:00 02/08/22 10:45 Labs: Laboratory Last Values WBC 9.2 K/mm3 (4.5-11.0) 02/07/22 04:18 RBC 4.86 M/mm3 (3.65-5.03) 02/07/22 04:18 Hgb 15.3 gm/dl (11.8-15.2) H 02/07/22 04:18 Hct 47.0 % (35.5-45.6) H 02/07/22 04:18 MCV 97 fl (84-94) H 02/07/22 04:18 MCH 32 pg (28-32) 02/07/22 04:18 MCHC 33 % (32-34) 02/07/22 04:18 RDW 12.1 % (13.2-15.2) L 02/07/22 04:18 Plt Count 195 K/mm3 (140-440) 02/07/22 04:18 Lymph % (Auto) 27.3 % (13.4-35.0) 02/06/22 10:44 [place] % (Auto) 6.2 % (0.0-7.3) 02/06/22 10:44 Eos % (Auto) 0.8 % (0.0-4.3) 02/06/22 10:44 Baso % (Auto) 0.8 % (0.0-1.8) 02/06/22 10:44 Lymph # (Auto) 2.5 K/mm3 (1.2-5.4) 02/06/22 10:44 [place] # (Auto) 0.6 K/mm3 (0.0-0.8) 02/06/22 10:44 Eos # (Auto) 0.1 K/mm3 (0.0-0.4) 02/06/22 10:44 Baso # (Auto) 0.1 K/mm3 (0.0-0.1) 02/06/22 10:44 Add Manual Diff Complete 02/07/22 04:18 Total Counted 100 02/07/22 04:18 Seg Neutrophils % 64.9 % (40.0-70.0) 02/06/22 10:44 Seg Neuts % (Manual) 62.0 % (40.0-70.0) 02/07/22 04:18 Band Neutrophils % 0 % 02/07/22 04:18 Lymphocytes % (Manual) 25.0 % (13.4-35.0) 02/07/22 04:18 Reactive Lymphs % (Man) 0 % 02/07/22 04:18 Monocytes % (Manual) 10.0 % (0.0-7.3) H 02/07/22 04:18 Eosinophils % (Manual) 1.0 % (0.0-4.3) 02/07/22 04:18 Basophils % (Manual) 2.0 % (0.0-1.8) H 02/07/22 04:18 Metamyelocytes % 0 % 02/07/22 04:18 Myelocytes % 0 % 02/07/22 04:18 Promyelocytes % 0 % 02/07/22 04:18 Blast Cells % 0 % 02/07/22 04:18 Nucleated RBC % Not Reportable 02/07/22 04:18 Seg Neutrophils # 5.9 K/mm3 (1.8-7.7) 02/06/22 10:44 Seg Neutrophils # Man 5.7 K/mm3 (1.8-7.7) 02/07/22 04:18 Band Neutrophils # 0.0 K/mm3 02/07/22 04:18 Lymphocytes # (Manual) 2.3 K/mm3 (1.2-5.4) 02/07/22 04:18 Abs React Lymphs (Man) 0.0 K/mm3 02/07/22 04:18 Monocytes # (Manual) 0.9 K/mm3 (0.0-0.8) H 02/07/22 04:18 Eosinophils # (Manual) 0.1 K/mm3 (0.0-0.4) 02/07/22 04:18 Basophils # (Manual) 0.2 K/mm3 (0.0-0.1) H 02/07/22 04:18 Metamyelocytes # 0.0 K/mm3 02/07/22 04:18 Myelocytes # 0.0 K/mm3 02/07/22 04:18 Promyelocytes # 0.0 K/mm3 02/07/22 04:18 Blast Cells # 0.0 K/mm3 02/07/22 04:18 WBC Morphology Not Reportable 02/07/22 04:18 Hypersegmented Neuts Not Reportable 02/07/22 04:18 Hyposegmented Neuts Not Reportable 02/07/22 04:18 Hypogranular Neuts Not Reportable 02/07/22 04:18 Smudge Cells Not Reportable 02/07/22 04:18 Toxic Granulation Not Reportable 02/07/22 04:18 Toxic Vacuolation Not Reportable 02/07/22 04:18 Dohle Bodies Not Reportable 02/07/22 04:18 Pelger-Huet Anomaly Not Reportable 02/07/22 04:18 Melani Rods Not Reportable 02/07/22 04:18 Platelet Estimate Consistent w auto 02/07/22 04:18 Clumped Platelets Not Reportable 02/07/22 04:18 Plt Clumps, EDTA Not Reportable 02/07/22 04:18 Large Platelets Not Reportable 02/07/22 04:18 Giant Platelets Not Reportable 02/07/22 04:18 Platelet Satelliting Not Reportable 02/07/22 04:18 Plt Morphology Comment Not Reportable 02/07/22 04:18 RBC Morphology Normal 02/07/22 04:18 Dimorphic RBCs Not Reportable 02/07/22 04:18 Polychromasia Not Reportable 02/07/22 04:18 Hypochromasia Not Reportable 02/07/22 04:18 Poikilocytosis Not Reportable 02/07/22 04:18 Anisocytosis Not Reportable 02/07/22 04:18 Microcytosis Not Reportable 02/07/22 04:18 Macrocytosis Not Reportable 02/07/22 04:18 Spherocytes Not Reportable 02/07/22 04:18 Pappenheimer Bodies Not Reportable 02/07/22 04:18 Sickle Cells Not Reportable 02/07/22 04:18 Target Cells Not Reportable 02/07/22 04:18 Tear Drop Cells Not Reportable 02/07/22 04:18 Ovalocytes Not Reportable 02/07/22 04:18 Helmet Cells Not Reportable 02/07/22 04:18 Coyne-Gower Bodies Not Reportable 02/07/22 04:18 [place] Rings Not Reportable 02/07/22 04:18 [place] Cells Not Reportable 02/07/22 04:18 Bite Cells Not Reportable 02/07/22 04:18 Crenated Cell Not Reportable 02/07/22 04:18 Elliptocytes Not Reportable 02/07/22 04:18 Acanthocytes (Spur) Not Reportable 02/07/22 04:18 Rouleaux Not Reportable 02/07/22 04:18 Hemoglobin C Crystals Not Reportable 02/07/22 04:18 Schistocytes Not Reportable 02/07/22 04:18 Malaria parasites Not Reportable 02/07/22 04:18 Shawn Bodies Not Reportable 02/07/22 04:18 Hem Pathologist Commnt No 02/07/22 04:18 PT 11.7 Sec. (12.2-14.9) L 02/06/22 10:44 INR 0.78 (0.87-1.13) L 02/06/22 10:44 APTT 24.4 Sec. (24.2-36.6) 02/06/22 10:44 Thrombin Time 16.0 Sec. (15.1-19.6) 02/06/22 10:44 VBG pH 7.392 (7.320-7.420) 02/06/22 12:23 Sodium 134 mmol/L (137-145) L D 02/07/22 12:38 Potassium 4.7 mmol/L (3.6-5.0) D 02/07/22 12:38 Chloride 102.9 mmol/L (98-107) 02/07/22 12:38 Carbon Dioxide 20 mmol/L (22-30) L 02/07/22 12:38 Anion Gap 16 mmol/L 02/07/22 12:38 BUN 13 mg/dL (9-20) 02/07/22 12:38 Creatinine 0.7 mg/dL (0.8-1.3) L 02/07/22 12:38 Estimated GFR > 60 ml/min 02/07/22 12:38 BUN/Creatinine Ratio 19 % 02/07/22 12:38 Glucose 308 mg/dL (75-100) H 02/07/22 12:38 POC Glucose 147 mg/dL (70-105) H 02/08/22 07:36 Hemoglobin A1c 19.6 % (4-6) H 02/06/22 12:23 Calcium 7.9 mg/dL (8.4-10.2) L 02/07/22 12:38 Phosphorus 3.90 mg/dL (2.5-4.5) 02/06/22 17:03 Magnesium 1.70 mg/dL (1.7-2.3) 02/06/22 17:03 Total Bilirubin 0.40 mg/dL (0.1-1.2) 02/07/22 04:18 AST 25 units/L (5-40) 02/07/22 04:18 ALT 17 units/L (7-56) 02/07/22 04:18 Alkaline Phosphatase 58 units/L (35-129) 02/07/22 04:18 Total Creatine Kinase 36 units/L (55-170) L 02/06/22 12:23 CK-MB (CK-2) 1.5 ng/mL (0.0-4.0) 02/06/22 10:44 CK-MB (CK-2) Rel Index 3.7 (0-4) 02/06/22 10:44 Troponin T < 0.010 ng/mL (0.00-0.029) 02/06/22 10:44 Total Protein 4.3 g/dL (6.3-8.2) L D 02/07/22 04:18 Albumin 2.4 g/dL (3.9-5) L 02/07/22 04:18 Albumin/Globulin Ratio 1.3 % 02/07/22 04:18 Triglycerides 363 mg/dL (2-149) H 02/06/22 12:23 Cholesterol 283 mg/dL (50-199) H 02/06/22 12:23 LDL Cholesterol Direct 187 mg/dL (50-130) H 02/06/22 12:23 HDL Cholesterol 50 mg/dL (40-59) 02/06/22 12:23 Cholesterol/HDL Ratio 5.66 % 02/06/22 12:23 TSH 3.140 mlU/mL (0.270-4.200) 02/06/22 12:23 Free T4 1.44 ng/dL (0.76-1.46) 02/06/22 12:23 Urine Color Straw (Yellow) 02/06/22 Unknown Urine Turbidity Clear (Clear) 02/06/22 Unknown Urine pH 6.0 (5.0-7.0) 02/06/22 Unknown Ur Specific Marcus 1.030 (1.003-1.030) 02/06/22 Unknown Urine Protein 30 mg/dl mg/dL (Negative) 02/06/22 Unknown Urine Glucose (UA) 2+ mg/dL (Negative) 02/06/22 Unknown Urine Ketones Negative mg/dL (Negative) 02/06/22 Unknown Urine Blood Negative (Negative) 02/06/22 Unknown Urine Nitrite Negative (Negative) 02/06/22 Unknown Ur Reducing Substances Not Reportable 02/06/22 Unknown Urine Bilirubin Negative (Negative) 02/06/22 Unknown Urine Ictotest Not Reportable 02/06/22 Unknown Urine Urobilinogen 0.0 mg/dL (<2.0) 02/06/22 Unknown Ur Leukocyte Esterase Negative (Negative) 02/06/22 Unknown Urine WBC (Auto) < 1.0 /HPF (0.0-6.0) 02/06/22 Unknown Urine RBC (Auto) < 1.0 /HPF (0.0-6.0) 02/06/22 Unknown U Epithel Cells (Auto) 1.0 /HPF (0-13.0) 02/06/22 Unknown Urine Mucus Few /HPF 02/06/22 Unknown Urine Opiates Screen Presumptive negative 02/06/22 Unknown Urine Methadone Screen Presumptive negative 02/06/22 Unknown Ur Barbiturates Screen Presumptive negative 02/06/22 Unknown Ur Phencyclidine Scrn Presumptive negative 02/06/22 Unknown Ur Amphetamines Screen Presumptive negative 02/06/22 Unknown U Benzodiazepines Scrn Presumptive negative 02/06/22 Unknown Urine Cocaine Screen Presumptive negative 02/06/22 Unknown U Marijuana (THC) Screen Presumptive negative 02/06/22 Unknown Drugs of Abuse Note Disclamer 02/06/22 Unknown Munoz/IV: Voiding Method Urinal Active Medications - Current Medications Current Medications: Generic Name Dose Route Start Last Admin Trade Name Freq PRN Reason Stop Dose Admin Acetaminophen 650 mg 02/06/22 12:17 Acetaminophen 325 Mg Tab PO Q4H PRN Pain MILD(1-3)/Fever >100.5/DELGAD[place]O Atorvastatin Calcium 40 mg 02/07/22 22:00 02/07/22 21:55 Atorvastatin 40 Mg Tab PO 40 mg QHS MEGHNA Administration Dextrose 50 ml 02/07/22 08:05 Dextrose 50% In Water (25gm) 50 Ml Syringe IV Q30MIN PRN Hypoglycemia Protocol Fenofibrate 145 mg 02/07/22 10:00 02/07/22 09:43 Fenofibrate 145 Mg Tab PO 145 mg QDAY MEGHNA Administration Heparin Sodium (Porcine) 5,000 unit 02/06/22 22:00 02/07/22 21:55 Heparin 5,000 Unit/1 Ml Vial SUB-Q 5,000 unit Q12HR MEGHNA Administration Insulin Glargine 25 units 02/08/22 08:00 Insulin Glargine 100 Units/Ml SUB-Q QAMDIAB MEGHNA Insulin Human Lispro 0 unit 02/07/22 11:30 02/07/22 21:55 Insulin Lispro 100 Unit/Ml SUB-Q 3 unit ACHS MEGHNA Administration Protocol Metoclopramide HCl 10 mg 02/06/22 16:42 Metoclopramide 10 Mg/2 Ml Inj IV Q6H PRN Nausea And Vomiting Ondansetron HCl 4 mg 02/06/22 16:42 Ondansetron 4 Mg/2 Ml Inj IV Q8H PRN Nausea And Vomiting Sodium Chloride 10 ml 02/06/22 22:00 02/07/22 21:55 Sodium Chloride 0.9% 10 Ml Flush Syringe IV 10 ml BID MEGHNA Administration Sodium Chloride 10 ml 02/06/22 16:55 Sodium Chloride 0.9% 10 Ml Flush Syringe IV PRN PRN LINE FLUSH
[2022-02-08] MEDS: INSULIN GLARGINE 100 UNITS/ML SUB-Q SCH (09:36)
[2022-02-08] MEDS: HEPARIN 5,000 UNIT/1 ML VIAL SUB-Q SCH ×2 (09:37→22:25)
[2022-02-08] MEDS: FENOFIBRATE 145 MG TAB PO SCH (09:37)
[2022-02-08 11:55] LABS: Hematocrit 39.5 % (35.5-45.6); Hemoglobin 13.1 gm/dl (11.8-15.2); Mean Corpuscular HGB Conc 33 % (32-34); Mean Corpuscular Volume 97 fl (84-94); Platelet Count 156 K/mm3 (140-440); Red Blood Count 4.08 M/mm3 (3.65-5.03); Red Cell Distribution Width 12.3 % (13.2-15.2)
[2022-02-08 12:00] LABS: BUN/Creatinine Ratio 19; Blood Urea Nitrogen 13 mg/dL (9-20); Calcium 8.1 mg/dL (8.4-10.2); Hemolysis Index 11
--- NOTE | 2022-02-08 14:37 | Electrocardiograph Report ---
[facility] Test Date: 2022-02-06 Test Time: 12:15:26 Pat Name: COMPA ADEN Department: Room: A451 Gender: M Painter: ALLEGRA : 1965 Requested By: JESSICA KHAN Order Number: [id number] Reading MD: Rigo Atkinson Measurements Intervals [place] Rate: 61 P: 61 [place]: 136 QRS: 27 QRSD: 95 T: 46 QT: 391 QTc: 395 Interpretive Statements Sinus rhythm Anteroseptal infarct, old ST elevation, consider inferior injury No previous ECG available for comparison Electronically Signed On 02-08-2022 14:37:38 EDT by Rigo Atkinson
[2022-02-09] MEDS: INSULIN LISPRO 100 UNIT/ML SUB-Q SCH ×3 (09:11→15:37)
[2022-02-09] MEDS: HEPARIN 5,000 UNIT/1 ML VIAL SUB-Q SCH (09:18)
[2022-02-09] MEDS: FENOFIBRATE 145 MG TAB PO SCH (09:21)
[2022-02-09] MEDS: INSULIN GLARGINE 100 UNITS/ML SUB-Q SCH (09:27)
--- NOTE | 2022-02-09 15:15 | Discharge Summary ---
Providers - Providers Date of Admission: 02/06/22 16:42 Date of discharge: 02/09/22 Attending physician: FLORES MORALES MD 02/06/22 16:55 Occupational Therapy Evaluate and Treat [CONS] Routine Comment: Reason For Exam: Neuro deficits Physical Therapy Evaluation and Treat [CONS] Routine Comment: Reason For Exam: Neuro deficits 02/06/22 17:00 Consult to Physician [CONS] Routine Comment: Consulting Provider: PEDRO GARCIA Physician Instructions: Reason For Exam: CVA Primary care physician: INSURANCE APPLICATION INVESTIGATOR Hospitalization Reason for admission: right sided weakness Condition: Good Hospital course: Interval history: This is a 56-year-old male with recent herpes zoster infection who presents the emergency department with right-sided weakness, clumsiness, blurry vision for about a week with unintentional weight loss per family on 02/06. In the emergency department lab work was consistent with HHNK and the patient was admitted to the hospitalist service with consult to CCM and DKA protocol patient was also rule out CVA with consults to neurology and PT/OT. Hospital course to date: 02/07: Patient states that he has been feeling much better, denies any right sided weakness or blurred vision or numbness. NIHSS 0. Patient will have a MRI brain and had a CTA head/neck which showed no large vessel occlusion. Hemoglobin A1c is 16.9. Anion gap is closed and will be transitioned to SSI/long-acting insulin. Patient will be transferred to the floor. 02/08: Pending MRI and PT eval. Neither can be completed on the weekend so will follow up for completion tomorrow. Anticipate d/c in next 24hrs. Good glycemic control on current regimen. 02/09: PT eval demonstrated that patient has no needs. MRI brain negative for significant intracranial findings. 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 Advise paitent to follow up OP with ENT. Rx for lantus, atorvastatin, and aspirin e-rx to OP [facility] pharmacy. Assessment and plan: This is a 60-year-old male with recent hospital stay infection admitted with HHNK and r/o CVA Neuro: possible CVA -Neurology consulted, appreciate recommendations -CTH shows no focal mass, hemorrhage, hydrocephalus or acute or large marta torial infarct -MRI brain pending -CTA head/neck shows no large vessel occlusion -Reorientation as needed -Maintain sleep-wake cycle -As needed analgesia -PT/OT consulted, appreciate recommendations -Lipid panel noted -Lipitor and fenofibrate -Passes beside swallow eval -Echo pending Cardiac: HLD, hypertriglyceridemia -Lipitor, fenofibrate -Blood pressure monitoring per protocol -Echocardiogram pending Respiratory: NAD -Pulmonary hygiene -SPO2 monitor per protocol -Supplemental oxygen as needed GI: Moderate protein calorie malnutrition -Dietary supplements -PPI -CC diet : NAD -Monitor intake and output -Renally dose medications -Avoid nephrotoxic medications -Trend BMP ID: NAD -Monitor WBC and temperature curve Endo: s/p HHS, new diagnosed type 2 diabetes with hyperglycemia -Presented with a blood glucose of 609, AG 29 -S/p insulin drip -Transition to SSI with long-acting insulin -Avoid hypoglycemia -Accu-Cheks q ACH S -Hemoglobin A1c 19.6 Heme: Hemoconcentraion? -Trend CBC -Transfuse hemoglobin less than 7 -SCDs to BLE while in bed Disposition: 01 HOME / SELF CARE / HOMELESS Final Discharge Diagnosis (Prints w/discharge instructions): Hyperosmolar Hyperglycemic Syndrome Time spent for discharge: 35 Core Measure Documentation - Palliative Care Palliative Care/ Comfort Measures: Not Applicable - Core Measures Any of the following diagnoses?: none Exam - Physical Exam Narrative exam: Physical Exam: VITAL SIGNS: Reviewed. GENERAL: The patient appears normally developed, Vital signs as documented. HEAD: No signs of head trauma. EYES: Pupils are equal. Extraocular motions intact. EARS: Hearing grossly intact. MOUTH: Oropharynx is normal. NECK: No adenopathy, no JVD. CHEST: Chest with clear breath sounds bilaterally. No wheezes, rales, or rhonchi. CARDIAC: Regular rate and rhythm. S1 and S2, without murmurs, gallops, or rubs. VASCULAR: No Edema. Peripheral pulses normal and equal in all extremities. ABDOMEN: Soft, non tender and non distended. No rebound or guarding, and no masses palpated. Bowel Sounds normal. MUSCULOSKELETAL: Good range of motion of all major joints. Extremities without clubbing, cyanosis or edema. NEUROLOGIC EXAM: Alert and oriented x 4. no focal sensory or strength deficits. PSYCHIATRIC: Mood normal. SKIN: detail exam as documented in skin assessment - Constitutional Vitals: Temp Pulse Resp BP Pulse Ox 98.1 F 58 L 18 80/38 100 08/15/22 07:14 02/09/22 07:14 02/09/22 07:14 02/09/22 07:14 02/09/22 07:14 Plan Follow up with: PRIMARY CARE,MD [Primary Care Provider] - 3-5 Days Prescriptions: Insulin Glargine [Lantus VIAL] 25 unit SUB-Q QHS 30 Days #3 vial AtorvaSTATin [Lipitor] 40 mg PO QHS 90 Days #90 tablet Aspirin EC [Halfprin EC] 81 mg PO QDAY 90 Days #90 tablet.
[2022-02-09 15:25] VITALS: BP 91/48
--- NOTE | 2022-02-09 15:37 | Magnetic Resonance Report ---
MRI BRAIN WITHOUT CONTRAST INDICATION / CLINICAL INFORMATION: stroke. TECHNIQUE: Multiplanar, multisequence MR images of the brain were obtained. COMPARISON: CT head 02/06/2022 FINDINGS: BRAIN / INTRACRANIAL CONTENTS: Ventricles and cortical sulci are normal in size and configuration. Th ere is no mass effect. No evidence of intracranial hemorrhage or extra-axial fluid collection is seen . No significant areas of abnormal brain parenchymal signal intensity are identified. There is no ind ication of remote cortical infarction. Diffusion weighted scans are negative. There is no indication of acute ischemic injury. The brainstem and cerebellum have an unremarkable appearance. MIDLINE STRUCTURES:No abnormalities are seen to involve the pituitary gland. Pineal region has an unr emarkable appearance. CRANIOCERVICAL JUNCTION: No abnormalities are identified at the craniocervical junction. VASCULAR FLOW-VOIDS: Normal flow-voids are present within the major intracranial vessels. ORBITS: The orbits have an unremarkable appearance. SINUSES / MASTOIDS: There is opacification of the left maxillary sinus, left frontal sinus and of mul tiple anterior and mid ethmoid air cells on the left indicating obstruction of the air passageways in the region of the left OM U. In addition there is abnormal signal intensity in the left nasal cavity . Findings suggest possibility of antrochoanal polyp with obstruction of the OM U. Correlation with E NT evaluation is advised. Asymmetrical pneumatization of the mastoid air cells is noted. IMPRESSION: 1. No significant intracranial abnormalities are identified. 2. 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 Signer Name: Baljinder Patel MD Signed: 02/09/2022 3:32 PM Workstation Name: [id number]
== END 2022-02-09 18:54 | disposition home or self-care (01) | DRG 638 ==
LOC: ED 04:40 → CC1 16:42 → 4A 02-07 16:58
PROVIDERS: ADMIT Internal Medicine; ATTEND Internal Medicine
DX: E11.00 Type 2 diabetes mellitus with hyperosmolarity without nonketotic hyperglycemic-hyperosmolar coma (NKHHC) (principal); E44.0 Moderate protein-calorie malnutrition; E87.1 Hypo-osmolality and hyponatremia; Z68.1 Body mass index [BMI] 19.9 or less, adult; E86.0 Dehydration; E11.65 Type 2 diabetes mellitus with hyperglycemia; E78.2 Mixed hyperlipidemia; E78.1 Pure hyperglyceridemia; B02.9 Zoster without complications; Z86.73 Personal history of transient ischemic attack (TIA), and cerebral infarction without residual deficits
CPT/HCPCS: 36415; 70450; 70496; 70498; 70551; 71046; 80048; 80053; 80061; 80307; 81001; 82550; 82553; 82805; 82962; 83036; 83735; 84100; 84439; 84443; 84484; 85007; 85025; 85027; 85610; 85670; 85730; 93005; 93306; G0378; J3480; Q9967; C8929; J1644; J1815; J2405; J7030; J7120